=== PATIENT | female | born 1975 | race Caucasian/White ===

== ENCOUNTER 2020-10-09 15:17 | Outpatient (CLI) | payer OTHER, SELFPAY ==
--- NOTE | 2020-10-15 21:38 | WPDHOLTEREM ---
Holter/Event Monitor Holter/Event Monitor Date of procedure: 10/15/20 Holter/Event Procedure: 24 Hr Holter Monitor Diagnosis: Chest pain, tachycardia Indications: Young female with chest pain and tachycardia Image/Tracing Quality: Good Finding: The patient was monitored for 24 hours. The underlying rhythm was sinus with a minimum heart rate of 61 beats per minute, average heart rate of 83 beats per minute maximum heart rate of 143 beats per minute. There were 49 PVCs into APCs. There was no atrial fibrillation, SVT, ventricular tachycardia or pauses. The patient had several symptoms. The patient complained of racing heart beats at 6:46 p.m. at which time she was in sinus tachycardia rate 125. At 6:55 p.m. she complained of jaw tightness and she was in sinus tachycardia rate 140. A 7:00 p.m. she complained of flushing and her heart rate was in 120. S7 8:00 p.m. she had jaw tightness and she was in sinus tachycardia rate 128. At 7:26 p.m. she has shortness of breath and she was in sinus tachycardia rate 115 and at 7:27 p.m. she had palpitations and she was in sinus tachycardia rate 118. At 10:00 p.m. she had chest tightness and she was in sinus tachycardia rate 110, and at 10:21 a.m. she had chest tightness and remained in sinus tachycardia rate 101. Through the night it looks like her heart rate was running in the 60s to 70s. . Conclusion: Holter monitor was remarkable for somewhat high average heart rate. Symptoms correlated with sinus tachycardia.
== END 2020-10-09 15:18 | disposition home or self-care (01) ==
PROVIDERS: PCP Family Medicine Adolescent Medicine; Visit Provider Family Medicine Adolescent Medicine
DX: R00.0 Tachycardia, unspecified (principal)
CPT/HCPCS: 93225; 93226